=== PATIENT | female | born 2000 | race Hispanic/Latino ===

== ENCOUNTER 2020-06-16 23:59 | Emergency (ER) | payer SELFPAY ==
[2020-06-17 01:37] LABS: #Basophils 0.1 thou/uL (0.0-0.2); #Eosinphils 0.1 thou/uL (0.0-0.7); #Lymphocytes 2.1 thou/uL (1.20-3.40); #Monocytes 0.9 thou/uL (0.11-0.59); #Neutrophils 7.7 thou/uL (1.40-6.50); %Basophils 0.7 % (0.0-1.0); %Eosinophils 0.8 % (0.0-10.0); %Lymphocytes 19.2 % (28.0-48.0); %Monocytes 8.4 % (0.0-4.0); %Neutrophils 70.9 % (31.0-61.0); Hemoglobin 13.7 g/dL (12.0-16.0); Mean Corpuscular HGB CONC 35.1 g/dL (32.0-36.0); Mean Corpuscular Hemoglobin 32.1 pg (25.0-35.0); Mean Corpuscular Volume 91.6 fL (78.0-98.0); Mean Platelet Volume 7.3 fL (7.4-10.4); Platelet Count 212 thou/uL (130-400); RBC Distribution Width 11.1 % (11.5-14.5); Red Blood Cell (RBC) Count 4.27 mill/uL (4.00-5.20); White Blood Cell (WBC) Count 10.8 thou/uL (4.8-10.8)
[2020-06-17 01:41] LABS: Bilirubin Negative (Negative); Blood, Urine Large (Negative); Clarity Slightly Cloudy (Clear); Glucose, Urine (Dipstick) Negative (Negative); Ketone, Urine Negative (Negative); Leukocyte Negative (Negative); Nitrite Negative (Negative); Pregnancy Test - Urine (BHCG) Negative (Negative); Protein, Urine (Dipstick) Negative (Neg-Trace)
[2020-06-17 01:42] LABS: Pregu Control Background? CLEAR/WHITE (CLR/WHITE); Pregu Control Bar Appear? YES (CONTROL BAR); Specific Gravity 1.021 (1.002-1.036)
[2020-06-17 01:43] LABS: Specific Gravity, Urine 1.026 (1.005-1.030)
[2020-06-17 01:49] LABS: Bacteria/HPF Rare-Few HPF (None Seen); Squamous Epithelial 0-3 HPF (0-3); WBC/HPF 0-3 HPF (0-3)
[2020-06-17 01:53] LABS: ALT (SGPT) 16 U/L (8-55); AST (SGOT) 15 U/L (5-34); Alkaline Phosphatase 81 U/L (40-100); Anion Gap 13 mmol/L (10-20); BUN (Urea Nitrogen) 8 mg/dL (7.0-18.7); Bilirubin, Total 0.5 mg/dL (0.2-1.2); Calc. Creatinine Clearance 0 mL/min (70-130); Calcium 8.9 mg/dL (7.8-10.44); Carbon Dioxide 26 mmol/L (22-29); Chloride 105 mmol/L (98-107); Globulin 3.2 g/dL (2.4-3.5); Glucose 98 mg/dL (70-105); Lipase 25 U/L (8-78); Potassium 3.8 mmol/L (3.5-5.1); Protein, Total 7.2 g/dL (6.0-8.3); Sodium 140 mmol/L (136-145)
[2020-06-17] MEDS ORDERED: metroNIDAZOLE 500 MG/100 ML BAG ONE (02:58)
[2020-06-17] MEDS ORDERED: cefTRIAXone\\ROCEPHIN 1 GM VIAL ONE (02:58)
[2020-06-17] MEDS ORDERED: Sodium Chloride 0.9% 100 ML ONE (02:59)
[2020-06-17] MEDS ORDERED: Propofol 1,000 MG/100 ML VIAL IV ONE (07:07)
--- NOTE | 2020-06-17 10:47 | CT ---
PRELIMINARY REPORT/[facility]/EMERGENCY AFTER HOURS PROCEDURE: Receipt of this report by the clinical staff was confirmed with Fernando Marvin RN by Katie Smalls on Jun 17, 2020 02:44:00 QUALITY TECHNICIAN. Addendum electronically signed by Katie Smalls on June 17, 2020 2:44:31 AM QUALITY TECHNICIAN EXAM: CT abdomen/pelvis with contrast CLINICAL HISTORY: Burning pain, cramping pain, to the left lower quadrant, to the right lower quadrant, Pain radiates, to the right flank COMPARISONS: None provided. TECHNIQUE: CT imaging of the abdomen and pelvis after intravenous administration of 100 mL Isovue-370 iodinated contrast. Multiplanar reconstructions performed. FINDINGS: LOWER CHEST: Normal. LIVER: Normal. GALLBLADDER/BILIARY: Gallbladder is decompressed. No biliary ductal dilatation. SPLEEN: Normal. PANCREAS: Normal. ADRENAL GLANDS: Normal. KIDNEYS/URETERS/URINARY BLADDER: Normal appearance of the kidneys. Ureters are normal in course caliber. No urinary stones. Urinary bladder is unremarkable. REPRODUCTIVE: Normal. STOMACH/BOWEL: Normal appearance of the uterus. Multicystic/follicular appearance of the ovaries. Largest cyst of th e right ovary measures 2.6 cm, likely physiologic. APPENDIX: Appendix measures 9 mm in diameter with mucosal hyperenhancement and mild appendiceal wall thickening . Heterogeneous stranding adjacent to the appendiceal tip and lower cecum without focal fluid collect ion. PERITONEUM/MESENTERY: No intraperitoneal free air. No intraperitoneal free fluid. VASCULAR: Vascular structures of the abdomen and pelvis are normal in course and caliber. LYMPH NODES: No lymphadenopathy. MUSCULOSKELETAL: Normal. No acute osseous abnormality. ABDOMINAL WALL: Peripheral soft tissues are unremarkable. IMPRESSION: Acute appendicitis with enlarged caliber of the appendix, inflammatory appendiceal hyperenhancement, and periappendiceal/pericecal mesenteric inflammatory changes. No periappendiceal abscess or gross pe rforation. ELECTRONICALLY SIGNED BY: Ashwin Harris MD Jun 17, 2020 2:37:24 AM QUALITY TECHNICIAN This report is intended for review by the ordering physician only, in accordance of law. If you recei ve this report in error, please call [facility] at [phone]. FINAL REPORT CT ABDOMEN AND PELVIS WITH CONTRAST: Date: 06/17/[address] of the abdomen and pelvis was performed for evaluation of crampy lower abdominal pain. Axia l slices were acquired after giving IV contrast, and coronal and sagittal reconstructions were done. The appendix is borderline in size at 7-8 mm in width. The huang enhance slightly and seem slightly t hickened. There may be some minor periappendiceal streaking. No associated abscess was seen. The find ings are suspicious for acute appendicitis. The lung bases are clear. The liver, pancreas, kidneys, adrenal glands, and aorta appear normal. The spleen is upper normal in size at 13.6 cm in length. The bowel shows no distention or signs of obstruction. No free air or free fluid seen. CT of the pelvis shows a 3+ cm right ovarian cyst. No free fluid was seen in the pelvis. An IUD is in place. IMPRESSION: Borderline appendiceal size with slight wall thickening and slight enhancement of its huang. Early ac isabel appendicitis should be considered. Correlate with clinical exam. Report in agreement with preliminary reading by [facility]. POS: HOME
[2020-06-17] MEDS ORDERED: Iopamidol 370 76% 100 ML VIAL ONE (10:55)
[2020-06-19 00:25] LABS: Chlam.trachomatis by PCR,Urine DETECTED (NotDetected)
== END 2020-06-17 04:32 | disposition home or self-care (01) ==
LOC: BURERS 23:59
DX: K35.80 Unspecified acute appendicitis (principal); F17.290 Nicotine dependence, other tobacco product, uncomplicated
CPT/HCPCS: 36415; 74177; 80053; 81003; 81015; 81025; 83690; 85025; 87491; 87591; 96365; 96375; J0696; J2704; J3490; Q9967

== ENCOUNTER 2022-01-27 05:11 | Emergency (ER) | payer SELFPAY ==
[2022-01-27 06:15] LABS: Bilirubin Negative (Negative); Blood, Urine Negative (Negative); Clarity Clear (Clear); Glucose, Urine (Dipstick) Negative (Negative); Ketone, Urine Negative (Negative); Leukocyte Negative (Negative); Nitrite Negative (Negative); Protein, Urine (Dipstick) Negative (Neg-Trace); Specific Gravity, Urine 1.015 (1.005-1.030); Urobilinogen 0.2 mg/dL (Less than 2)
[2022-01-27 06:16] LABS: Pregnancy Test - Urine (BHCG) Negative (Negative)
[2022-01-27 06:17] LABS: Pregu Control Background? CLEAR/WHITE (CLR/WHITE); Pregu Control Bar Appear? YES (CONTROL BAR); Specific Gravity 1.015 (1.002-1.036)
== END 2022-01-27 06:35 | disposition home or self-care (01) ==
LOC: BURERS 05:11
DX: K59.00 Constipation, unspecified (principal)
CPT/HCPCS: 74018; 81003; 81025

== ENCOUNTER 2024-02-11 07:16 | Emergency (ER) | payer OTHER, SELFPAY ==
[2024-02-11 08:26] LABS: SARS-CoV-2 NAA Rapid Test Not Detected (NotDetected)
[2024-02-11 08:28] LABS: SARS-CoV-2 E Target Negative; SARS-CoV-2 N2 Target Negative; SARS-CoV-2 RdRP gene Negative
[2024-02-11] MEDS ORDERED: Acetaminophen 500 MG TAB ONE (08:36)
[2024-02-11] MEDS ORDERED: Acetaminophen 325 MG TAB ONE (08:38)
== END 2024-02-11 08:52 | disposition home or self-care (01) ==
LOC: BURERS 07:16
DX: J06.9 Acute upper respiratory infection, unspecified (principal)
CPT/HCPCS: 99283; U0002